=== PATIENT | male | born 1995 | race Caucasian/White ===

== ENCOUNTER 2022-06-29 18:35 | Emergency (ER) | payer MEDICAID ==
[~2022-06-29] VITALS: Ht 175.3 cm; Wt 103.3 kg
[2022-06-29 18:37] VITALS: BP 133/80
[2022-06-29] MEDS ORDERED: AMOX500C2 PO ×2 (19:38→20:36)
[2022-06-29] MEDS ORDERED: HYDR-3965 PO ×2 (19:38→20:36)
== END 2022-06-29 19:47 | disposition home or self-care (01) ==
LOC: ER 18:36
DX: K08.89 Other specified disorders of teeth and supporting structures (principal); Z79.899 Other long term (current) drug therapy
CPT/HCPCS: 99283